=== PATIENT | female | born 1985 | race Caucasian/White ===

== ENCOUNTER 2020-08-03 22:30 | Inpatient (IN) | payer BC ==
[2020-08-03] MEDS ORDERED: Sodium Chloride 0.9% 10 ML Syringe FLUSH PRN (22:48)
--- NOTE | 2020-08-03 22:59 | PCM.LDHP ---
L&D History of Present Illness - General Date of Service: 08/03/20 (labor) Admit Problem/Dx: Patient Status Order with Admit Dx/Problem 08/03/20 22:48 Patient Status [ADT] Routine Admission Diagnosis/Problem Admission Diagnosis/Problem Labor established Source of Information: Patient History Limitations: Reports: No Limitations - History of Present Illness Introduction:: Rishabh is a 35 year old who is 39 6/7 weeks gestation. I saw her clinic this morning and she was /-1. She contracted all day at home. This evening contractions got stronger and she felt she needed to come in about 2200. Healthy Labs GBS neg ABO A pos HIV neg Rubella immune although she has had several booster shots over the years. Timing/Duration: Reports: minutes: (5), constant/continuous Location, : Reports: Abdomen Quality: Reports: Pressure Severity: Moderate Improves with: Reports: None Worsens with: Reports: None - Related Data Allergies/Adverse Reactions: Allergies Allergy/AdvReac Type Severity Reaction Status Date / Time No Known Allergies Allergy Verified 10/29/13 06:30 Home Medications: Home Meds Vits #93/Iron Fum/FA [ Formula Tablet] 1 each PO DAILY 09/13/18 [History] Past Medical History - Past Health History Medical/Surgical History: Denies Medical/Surgical History Respiratory History: Reports: None SAMPLE COORDINATOR History: Reports: : 10 Para: 9 LMP (Approximate): (SHARON 08/04/20) - Infectious Disease History Infectious Disease History: Reports: Chicken Pox - Past Surgical History Cardiovascular Surgical History: Reports: None Respiratory Surgical History: Reports: None GI Surgical History: Reports: None Social & Family History - Family History Family Medical History: Noncontributory - Caffeine Use Caffeine Use: Reports: Coffee Other Caffeine Use: minimally H&P Review of Systems - Review of Systems: Review Of Systems: See Below General: Reports: No Symptoms HEENT: Reports: No Symptoms Pulmonary: Reports: No Symptoms Cardiovascular: Reports: No Symptoms Gastrointestinal: Reports: No Symptoms Genitourinary: Reports: No Symptoms Musculoskeletal: Reports: No Symptoms Skin: Reports: No Symptoms Psychiatric: Reports: No Symptoms Neurological: Reports: No Symptoms Hematologic/Lymphatic: Reports: No Symptoms Immunologic: Reports: No Symptoms L&D Exam - Exam Exam: See Below - OB Specific Contraction Intensity: Moderate Movement: Active Heart Tones: Present Heart Tones per Min: 145 Heart Rate (FHR) Variability: Moderate (6-25 bmp) Presentation: Vertex Estimated Weight: 8 pounds - Problem List (1) Labor established SNOMED Code(s): 96170141 ICD Code: PRZ0152 - Status: Acute Current Visit: Yes (2) SNOMED Code(s): 20593304 ICD Code: Z34.90 - ENCNTR FOR SUPRVSN OF NORMAL , UNSP, UNSP TRIMESTER Status: Acute Current Visit: Yes Qualifiers: Weeks of gestation: 39 weeks Qualified Code(s): Z3A.39 - 39 weeks gestation of Problem List Initiated/Reviewed/Updated: Yes Orders Last 24hrs: Active Orders 24 hr Category Date Time Status Patient Status [ADT] Routine ADT 08/03/20 22:48 Ordered Antiembolic Devices [RC] .Routine Care 08/03/20 22:51 Ordered Communication Order [RC] ASDIRECTED Care 08/03/20 22:48 Ordered Communication Order [RC] Per Unit Routine Care 08/03/20 22:54 Ordered Communication Order [RC] Per Unit Routine Care 08/03/20 22:54 Ordered Communication Order [RC] Per Unit Routine Care 08/03/20 22:54 Ordered Heart Tones [RC] PER UNIT ROUTINE Care 08/03/20 22:48 Ordered Non Stress Test [RC] Click to Edit Care 08/03/20 22:48 Ordered Nitrous Oxide Delivery [RC] ASDIRECTED Care 08/03/20 22:54 Ordered Notify Provider Vital Signs [RC] PRN Care 08/03/20 22:48 Ordered Notify Provider [RC] PRN Care 08/03/20 22:48 Ordered Oxygen Therapy [RC] ASDIRECTED Care 08/03/20 22:54 Ordered Pulse Oximetry [RC] ASDIRECTED Care 08/03/20 22:54 Ordered Up ad Madhuri [RC] ASDIRECTED Care 08/03/20 22:48 Ordered VTE/DVT Education [RC] Click to Edit Care 08/03/20 22:51 Ordered Verify Patient Consent Obtain [RC] ASDIRECTED Care 08/03/20 22:54 Ordered Vital Signs [RC] PER UNIT ROUTINE Care 08/03/20 22:48 Ordered Vital Signs [RC] PER UNIT ROUTINE Care 08/03/20 22:54 Ordered Regular Diet [DIET] Diet 08/04/20 Breakfast Ordered CBC WITH AUTO DIFF [HEME] Routine Lab 08/03/20 22:37 Ordered CORONAVIRUS COVID-19 RAPID [MOLEC] Stat Lab 08/03/20 22:43 Received DRUG SCREEN, URINE [URCHEM] Routine Lab 08/03/20 22:37 Ordered UA W/MICROSCOPIC [URIN] Routine Lab 08/03/20 22:36 Ordered Oxytocin/Normal Saline [Pitocin in NS 20 Units/1,000 ML Med 08/03/20 22:53 Ordered ] 20 unit in 1,000 ml IV ONETIME Sodium Chloride 0.9% [Saline Flush] Med 08/03/20 22:48 Ordered 10 ml FLUSH ASDIRECTED PRN DVT/VTE Prophylaxis Reflex [OM.PC] Routine Oth 08/03/20 22:48 Ordered Saline Lock Insert [OM.PC] Routine Oth 08/03/20 22:48 Ordered Resuscitation Status Routine Resus Stat 08/03/20 22:48 Ordered Medication Orders Oxytocin/Sodium Chloride (Pitocin In Ns 20 Units/1,000 Ml) 20 unit in 1,000 mls @ 999 mls/hr IV ONETIME ONE; Protocol Stop: 08/03/20 23:53 Sodium Chloride (Saline Flush) 10 ml FLUSH ASDIRECTED PRN PRN Reason: Keep Vein Open Assessment/Plan Comment:: 08/03/20 35 year old G10, P9 39 6/7 weeks, labor CE 4/5-90-0 AROM clear fluid Covid pending, if negative she can have Nitrous Plan anticipate a vaginal delivery nitrous for pain management
[2020-08-04] MEDS ORDERED: Benzocaine 20% Top Spray 56 GM Bottle TOP ONE (00:58)
[2020-08-04] MEDS ORDERED: Lanolin 100% Cream 40 GM Tube TOP ONE (00:58)
[2020-08-04] MEDS ORDERED: Hydrocortisone 2.5% Crm 30 GM Tube TOP PRN (00:58)
[2020-08-04] MEDS ORDERED: Witch Hazel Medicated Pads 100/Jar TOP ONE (00:58)
[2020-08-04] MEDS ORDERED: Acetaminophen 325 MG Tab, 50 Tab Bulk Bottle PO PRN (01:00)
[2020-08-04] MEDS ORDERED: Ibuprofen 200 MG Tab, 24 Tab Bulk Bottle PO PRN (01:00)
--- NOTE | 2020-08-04 01:09 | PCM.DEL ---
L & D Note - General Info Date of Service: 08/04/20 (Childbirth) Mother's Due Date: 08/04/20 - Delivery Note Labor: Spontaneous Delivery Outcome: Livebirth Infant Delivery Method: Spontaneous Vaginal Delivery-Single Delivery Mode: Spontaneous Presentation: Vertex Nuchal Cord: Present, Reduced Anesthesia Type: Nitrous Oxide Episiotomy Type: None Laceration: None Placenta: Intact, Spontaneous Cord: 3 Vessels Estimated Blood Loss: 50 Resuscitation Needed: No [place]: Stimulated, Warmed, [place] Used Provider: Saray Giron Score 1 min: 9 Score 5 min: 9 Second Stage Interventions: Reports: Second Nurse Reviewed Heart Tones, Pushing, Feet in Foot Rests Delivery Comments (Free Text/Narrative):: 08/04/20 this 35 year old G10 now p10 who is 40 weeks gestation delivered a viable male infant over an intact perineum at [address] [facility]. The had a nuchal cord which was reduced after delivery of the head. He was placed on mother's chest and cried spontaneously. Apgars of 9&9. Three vessel cord. Active management of the third stage and skin to skin were done. The placenta was expressed spontaneously intact and had a marginal cord insertion. No laceration of the perineum, vagina, cervix or rectum were found Bleeding light nad EBL 50cc Mother and baby to post in good condition. weight 7-8 First stage [id number] Second stage 8913-9546 Third stage 0789-2601 Beautiful delivery - General Info Date of Service: 08/04/20 Functional Status: Reports: Pain Controlled - Review of Systems General: Reports: No Symptoms HEENT: Reports: No Symptoms Pulmonary: Reports: No Symptoms Cardiovascular: Reports: No Symptoms Gastrointestinal: Reports: No Symptoms Genitourinary: Reports: No Symptoms Musculoskeletal: Reports: No Symptoms Skin: Reports: No Symptoms Neurological: Reports: No Symptoms Psychiatric: Reports: No Symptoms - Patient Data Vitals - Most Recent: Last Vital Signs Temp Pulse 96 08/03/20 22:41 Resp 18 08/03/20 22:41 BP 140/82 08/03/20 22:41 Pulse Ox 98 08/03/20 22:41 Weight - Most Recent: 220 lb Lab Results Last 24 Hours: Laboratory Results - last 24 hr 08/03/20 08/03/20 08/03/20 Range/Units 22:36 22:37 22:37 WBC 11.0 (4.5-11.0) K/uL RBC 4.16 (3.30-5.50) M/uL Hgb 12.3 (12.0-15.0) g/dL Hct 37.6 (36.0-48.0) % MCV 90 (80-98) fL MCH 30 (27-31) pg MCHC 33 (32-36) % Plt Count 187 (150-400) K/uL Neut % (Auto) 73 H (36-66) % Lymph % (Auto) 21 L (24-44) % [place] % (Auto) 6 (2-6) % Eos % (Auto) 0 L (2-4) % Baso % (Auto) 0 (0-1) % Urine Color Yellow (YELLOW) Urine Appearance Clear (CLEAR) Urine pH 7.5 (5.0-8.0) Ur Specific [place] 1.020 (1.008-1.030) Urine Protein Negative (NEGATIVE) mg/dL Urine Glucose (UA) Negative (NEGATIVE) mg/dL Urine Ketones Negative (NEGATIVE) mg/dL Urine Occult Blood Negative (NEGATIVE) Urine Nitrite Negative (NEGATIVE) Urine Bilirubin Negative (NEGATIVE) Urine Urobilinogen 0.2 (0.2-1.0) EU/dL Ur Leukocyte Esterase Negative (NEGATIVE) Urine RBC Not seen (0-5) Urine WBC Not seen (0-5) Ur Epithelial Cells Not seen Amorphous Sediment Not seen Urine Bacteria Not seen Urine Mucus Not seen Urine Opiates Screen Negative (NEGATIVE) Ur Oxycodone Screen Negative (NEGATIVE) Urine Methadone Screen Negative (NEGATIVE) Ur Propoxyphene Screen Negative (NEGATIVE) Ur Barbiturates Screen Negative (NEGATIVE) Ur Tricyclics Screen Negative (NEGATIVE) Ur Phencyclidine Scrn Negative (NEGATIVE) Ur Amphetamine Screen Negative (NEGATIVE) U Methamphetamines Scrn Negative (NEGATIVE) Urine MDMA Screen Negative (NEGATIVE) U Benzodiazepines Scrn Negative (NEGATIVE) U Cocaine Metab Screen Negative (NEGATIVE) U Marijuana (THC) Screen Negative (NEGATIVE) SARS CoV-2 RNA Rapid VANDANA 08/03/20 Range/Units 22:43 WBC (4.5-11.0) K/uL RBC (3.30-5.50) M/uL Hgb (12.0-15.0) g/dL Hct (36.0-48.0) % MCV (80-98) fL MCH (27-31) pg MCHC (32-36) % Plt Count (150-400) K/uL Neut % (Auto) (36-66) % Lymph % (Auto) (24-44) % [place] % (Auto) (2-6) % Eos % (Auto) (2-4) % Baso % (Auto) (0-1) % Urine Color (YELLOW) Urine Appearance (CLEAR) Urine pH (5.0-8.0) Ur Specific [place] (1.008-1.030) Urine Protein (NEGATIVE) mg/dL Urine Glucose (UA) (NEGATIVE) mg/dL Urine Ketones (NEGATIVE) mg/dL Urine Occult Blood (NEGATIVE) Urine Nitrite (NEGATIVE) Urine Bilirubin (NEGATIVE) Urine Urobilinogen (0.2-1.0) EU/dL Ur Leukocyte Esterase (NEGATIVE) Urine RBC (0-5) Urine WBC (0-5) Ur Epithelial Cells Amorphous Sediment Urine Bacteria Urine Mucus Urine Opiates Screen (NEGATIVE) Ur Oxycodone Screen (NEGATIVE) Urine Methadone Screen (NEGATIVE) Ur Propoxyphene Screen (NEGATIVE) Ur Barbiturates Screen (NEGATIVE) Ur Tricyclics Screen (NEGATIVE) Ur Phencyclidine Scrn (NEGATIVE) Ur Amphetamine Screen (NEGATIVE) U Methamphetamines Scrn (NEGATIVE) Urine MDMA Screen (NEGATIVE) U Benzodiazepines Scrn (NEGATIVE) U Cocaine Metab Screen (NEGATIVE) U Marijuana (THC) Screen (NEGATIVE) SARS CoV-2 RNA Rapid VANDANA Negative Med Orders - Current: Current Medications Acetaminophen (Tylenol Bulk Bottle) 0 mg PO Q4H PRN PRN Reason: Pain Benzocaine (Hfww-A-[id number] 20% [place]) 0 gm TOP Q4H ONE Stop: 08/04/20 00:59 Emollient Ointment (Lansinoh Hpa) 1 gm TOP ASDIRECTED ONE Stop: 08/04/20 00:59 Hydrocortisone (Proctozone-Hc 2.5% Crm) 1 gm TOP ASDIRECTED PRN PRN Reason: Itching Ibuprofen (Motrin Bulk Bottle) 600 mg PO Q6H PRN PRN Reason: Pain Sodium Chloride (Saline Flush) 10 ml FLUSH ASDIRECTED PRN PRN Reason: Keep Vein Open Witch Zuly (Tucks) 1 pad TOP ASDIRECTED ONE Stop: 08/04/20 00:59 Discontinued Medications Oxytocin/Sodium Chloride (Pitocin In Ns 20 Units/1,000 Ml) 20 unit in 1,000 mls @ 999 mls/hr IV ONETIME ONE; Protocol Stop: 08/03/20 23:53 Last Admin: 08/04/20 00:15 Dose: 999 mls/hr, 999 mls/hr Documented by: - Exam General: Alert, Oriented HEENT: Pupils Equal, Pupils Reactive Neck: Supple Lungs: Clear to Auscultation, Normal Respiratory Effort Cardiovascular: Regular Rate, Regular Rhythm GI/Abdominal Exam: Normal Bowel Sounds, Soft (Female) Exam: Normal External Exam, Cervical Dilatation, Enlarged Uterus, Vaginal Bleeding Back Exam: Normal Inspection, Full Range of Motion Extremities: Normal Inspection, No Pedal Edema, Normal Capillary Refill Skin: Warm, Dry, Intact Neurological: No New Focal Deficit Psy/Mental Status: Alert, Normal Affect, Normal Mood - Problem List & Annotations (1) Labor established SNOMED Code(s): 64752379 Code(s): TVX8724 - Status: Acute Current Visit: Yes (2) SNOMED Code(s): 17955950 Code(s): Z34.90 - ENCNTR FOR SUPRVSN OF NORMAL , UNSP, UNSP TRIMESTER Status: Acute Current Visit: Yes Qualifiers: Weeks of gestation: 39 weeks Qualified Code(s): Z3A.39 - 39 weeks gestation of (3) () SNOMED Code(s): 400934476 Code(s): Z78.9 - OTHER SPECIFIED HEALTH STATUS Status: Acute Current Visit: Yes (4) Normal (single liveborn) SNOMED Code(s): 378414600, 619922146, 703145453 Code(s): Z38.2 - SINGLE LIVEBORN , UNSPECIFIED TO PLACE OF Status: Acute Current Visit: Yes (5) Vaginal delivery SNOMED Code(s): 201557893 Code(s): O80 - ENCOUNTER FOR FULL-TERM UNCOMPLICATED DELIVERY Status: Acute Current Visit: Yes - Problem List Review Problem List Initiated/Reviewed/Updated: Yes - My Orders Last 24 Hours: My Active Orders 08/03/20 22:48 Communication Order [RC] ASDIRECTED Notify Provider Vital Signs [RC] PRN Notify Provider [RC] PRN Up ad Madhuri [RC] ASDIRECTED Vital Signs [RC] PER UNIT ROUTINE Sodium Chloride 0.9% [Saline Flush] 10 ml FLUSH ASDIRECTED PRN DVT/VTE Prophylaxis Reflex [OM.PC] Routine Saline Lock Insert [OM.PC] Routine 08/03/20 22:51 Antiembolic Devices [RC] .Routine VTE/DVT Education [RC] Click to Edit 08/03/20 22:54 Communication Order [RC] Per Unit Routine Communication Order [RC] Per Unit Routine Communication Order [RC] Per Unit Routine Nitrous Oxide Delivery [RC] ASDIRECTED Pulse Oximetry [RC] ASDIRECTED Verify Patient Consent Obtain [RC] ASDIRECTED Vital Signs [RC] PER UNIT ROUTINE 08/04/20 00:58 Patient Status [ADT] Routine Vital Signs [RC] PFP Benzocaine [Kscf-M-Qsdcdmp 20% [place]] See Dose Instructions TOP Q4H ONE Hydrocortisone [Proctozone-HC 2.5% Crm] 1 gm TOP ASDIRECTED PRN Lanolin [Lansinoh HPA] 1 gm TOP ASDIRECTED ONE witch Zuly [Tucks] 1 pad TOP ASDIRECTED ONE Resuscitation Status Routine 08/04/20 00:59 Peripheral IV Discontinue [OM.PC] Routine Sitz Bath [OM.PC] Per Unit Routine 08/04/20 01:00 Acetaminophen [Tylenol Bulk Bottle] See Dose Instructions PO Q4H PRN Ibuprofen [Motrin Bulk Bottle] 600 mg PO Q6H PRN 08/04/20 05:11 CBC WITH AUTO DIFF [HEME] AM 08/04/20 Breakfast Regular Diet [DIET] - Assessment Assessment:: 08/04/20 35 year old G10 now P10 without complications Male infant - Plan Plan:: 08/03/20 35 year old G10, P9 39 6/7 weeks, labor CE 01/03-90-0 AROM clear fluid Covid pending, if negative she can have Nitrous Plan anticipate a vaginal delivery nitrous for pain management 08/04/20 routine cares 24-48 hour stay
[2020-08-04] MEDS ORDERED: Benzocaine 20% Top Spray 56 GM Bottle TOP PRN (07:48)
[2020-08-04] MEDS ORDERED: Witch Hazel Medicated Pads 100/Jar TOP PRN (07:49)
[2020-08-04] MEDS ORDERED: Lanolin 100% Cream 40 GM Tube TOP PRN (07:49)
--- NOTE | 2020-08-04 11:07 | PCM.PNPP ---
- General Info Date of Service: 08/04/20 Functional Status: Reports: Pain Controlled - Review of Systems General: Reports: No Symptoms HEENT: Reports: No Symptoms Pulmonary: Reports: No Symptoms Cardiovascular: Reports: No Symptoms Gastrointestinal: Reports: No Symptoms Genitourinary: Reports: No Symptoms Musculoskeletal: Reports: No Symptoms Skin: Reports: No Symptoms Neurological: Reports: No Symptoms Psychiatric: Reports: No Symptoms - General Info Date of Service: 08/04/20 - Patient Data Vital Signs - Most Recent: Last Vital Signs Temp 36.2 C 08/04/20 11:01 Pulse 87 08/04/20 11:01 Resp 18 08/04/20 11:01 BP 120/63 08/04/20 11:01 Pulse Ox 98 08/04/20 11:01 Weight - Most Recent: 99.79 kg Lab Results - Last 24 Hours: Laboratory Results - last 24 hr 08/03/20 08/03/20 08/03/20 Range/Units 22:36 22:37 22:37 WBC 11.0 (4.5-11.0) K/uL RBC 4.16 (3.30-5.50) M/uL Hgb 12.3 (12.0-15.0) g/dL Hct 37.6 (36.0-48.0) % MCV 90 (80-98) fL MCH 30 (27-31) pg MCHC 33 (32-36) % Plt Count 187 (150-400) K/uL Neut % (Auto) 73 H (36-66) % Lymph % (Auto) 21 L (24-44) % [place] % (Auto) 6 (2-6) % Eos % (Auto) 0 L (2-4) % Baso % (Auto) 0 (0-1) % Urine Color Yellow (YELLOW) Urine Appearance Clear (CLEAR) Urine pH 7.5 (5.0-8.0) Ur Specific [place] 1.020 (1.008-1.030) Urine Protein Negative (NEGATIVE) mg/dL Urine Glucose (UA) Negative (NEGATIVE) mg/dL Urine Ketones Negative (NEGATIVE) mg/dL Urine Occult Blood Negative (NEGATIVE) Urine Nitrite Negative (NEGATIVE) Urine Bilirubin Negative (NEGATIVE) Urine Urobilinogen 0.2 (0.2-1.0) EU/dL Ur Leukocyte Esterase Negative (NEGATIVE) Urine RBC Not seen (0-5) Urine WBC Not seen (0-5) Ur Epithelial Cells Not seen Amorphous Sediment Not seen Urine Bacteria Not seen Urine Mucus Not seen Urine Opiates Screen Negative (NEGATIVE) Ur Oxycodone Screen Negative (NEGATIVE) Urine Methadone Screen Negative (NEGATIVE) Ur Propoxyphene Screen Negative (NEGATIVE) Ur Barbiturates Screen Negative (NEGATIVE) Ur Tricyclics Screen Negative (NEGATIVE) Ur Phencyclidine Scrn Negative (NEGATIVE) Ur Amphetamine Screen Negative (NEGATIVE) U Methamphetamines Scrn Negative (NEGATIVE) Urine MDMA Screen Negative (NEGATIVE) U Benzodiazepines Scrn Negative (NEGATIVE) U Cocaine Metab Screen Negative (NEGATIVE) U Marijuana (THC) Screen Negative (NEGATIVE) SARS CoV-2 RNA Rapid VANDANA 08/03/20 08/04/20 Range/Units 22:43 06:06 WBC 12.9 H (4.5-11.0) K/uL RBC 3.81 (3.30-5.50) M/uL Hgb 11.3 L (12.0-15.0) g/dL Hct 34.4 L (36.0-48.0) % MCV 90 (80-98) fL MCH 30 (27-31) pg MCHC 33 (32-36) % Plt Count 177 (150-400) K/uL Neut % (Auto) 81 H (36-66) % Lymph % (Auto) 13 L (24-44) % [place] % (Auto) 5 (2-6) % Eos % (Auto) 0 L (2-4) % Baso % (Auto) 0 (0-1) % Urine Color (YELLOW) Urine Appearance (CLEAR) Urine pH (5.0-8.0) Ur Specific [place] (1.008-1.030) Urine Protein (NEGATIVE) mg/dL Urine Glucose (UA) (NEGATIVE) mg/dL Urine Ketones (NEGATIVE) mg/dL Urine Occult Blood (NEGATIVE) Urine Nitrite (NEGATIVE) Urine Bilirubin (NEGATIVE) Urine Urobilinogen (0.2-1.0) EU/dL Ur Leukocyte Esterase (NEGATIVE) Urine RBC (0-5) Urine WBC (0-5) Ur Epithelial Cells Amorphous Sediment Urine Bacteria Urine Mucus Urine Opiates Screen (NEGATIVE) Ur Oxycodone Screen (NEGATIVE) Urine Methadone Screen (NEGATIVE) Ur Propoxyphene Screen (NEGATIVE) Ur Barbiturates Screen (NEGATIVE) Ur Tricyclics Screen (NEGATIVE) Ur Phencyclidine Scrn (NEGATIVE) Ur Amphetamine Screen (NEGATIVE) U Methamphetamines Scrn (NEGATIVE) Urine MDMA Screen (NEGATIVE) U Benzodiazepines Scrn (NEGATIVE) U Cocaine Metab Screen (NEGATIVE) U Marijuana (THC) Screen (NEGATIVE) SARS CoV-2 RNA Rapid VANDANA Negative Med Orders - Current: Current Medications Acetaminophen (Tylenol Bulk Bottle) 0 mg PO Q4H PRN PRN Reason: Pain Last Admin: 08/04/20 01:42 Dose: 325 mg Documented by: Benzocaine (Zgaa-J-Vgmgail 20% [place]) 0 gm TOP Q4H PRN PRN Reason: perineal pain Emollient Ointment (Lansinoh Hpa) 1 gm TOP ASDIRECTED PRN PRN Reason: SORE NIPPLES Hydrocortisone (Proctozone-Hc 2.5% Crm) 1 gm TOP ASDIRECTED PRN PRN Reason: Itching Ibuprofen (Motrin Bulk Bottle) 600 mg PO Q6H PRN PRN Reason: Pain Last Admin: 08/04/20 01:40 Dose: 600 mg Documented by: Sodium Chloride (Saline Flush) 10 ml FLUSH ASDIRECTED PRN PRN Reason: Keep Vein Open Alo Alvarez) 1 pad TOP ASDIRECTED PRN PRN Reason: TO perineum Discontinued Medications Benzocaine (Hbbq-F-Ikjsqrp 20% [place]) 0 gm TOP Q4H ONE Stop: 08/04/20 00:59 Last Admin: 08/04/20 01:41 Dose: Not Given Documented by: Emollient Ointment (Lansinoh Hpa) 1 gm TOP ASDIRECTED ONE Stop: 08/04/20 00:59 Last Admin: 08/04/20 01:41 Dose: Not Given Documented by: Oxytocin/Sodium Chloride (Pitocin In Ns 20 Units/1,000 Ml) 20 unit in 1,000 mls @ 999 mls/hr IV ONETIME ONE; Protocol Stop: 08/03/20 23:53 Last Admin: 08/04/20 00:15 Dose: 999 mls/hr, 999 mls/hr Documented by: Alo Alvarez) 1 pad TOP ASDIRECTED ONE Stop: 08/04/20 00:59 Last Admin: 08/04/20 01:40 Dose: 1 pad Documented by: - Infant Interaction Infant Disposition, : in Room with Family Infant Interaction: Holding Infant Feeding: Breastfed ; Nursed Well Support Person: - Recovery Exam Fundal Tone: Firm Fundal Level: At Umbilicus Fundal Placement: Midline Lochia Amount: Moderate Lochia Color: Rubra/Red Perineum Description: Intact, Minimal Bruising/Swelling Episiotomy/Laceration: None Bladder Status: Voiding - Exam General: Alert, Oriented HEENT: Pupils Equal, Pupils Reactive, Mucous Membr. Moist/[place] Neck: Supple Lungs: Clear to Auscultation, Normal Respiratory Effort Cardiovascular: Regular Rate, Regular Rhythm GI/Abdominal Exam: Normal Bowel Sounds, Soft, Non-Tender, No Organomegaly, No Mass, Pelvis Stable Extremities: Normal Inspection, Normal Range of Motion, Non-Tender, No Pedal Edema, Normal Capillary Refill Skin: Warm, Dry, Intact Neurological: No New Focal Deficit Psy/Mental Status: Alert, Normal Affect, Normal Mood - Problem List & Annotations (1) (infant) SNOMED Code(s): 165953022 Code(s): Z78.9 - OTHER SPECIFIED HEALTH STATUS Status: Acute Current Visit: Yes (2) Vaginal delivery SNOMED Code(s): 924478090 Code(s): O80 - ENCOUNTER FOR FULL-TERM UNCOMPLICATED DELIVERY Status: Acute Current Visit: Yes - Problem List Review Problem List Initiated/Reviewed/Updated: Yes - Assessment Assessment:: 08/04/20 35 year old G10 now P10 without complications Male 08/04/20 without complications Hbg 11.3 FF and bleeding light Feeling well - Plan Plan:: 08/03/20 35 year old G10, P9 39 6/7 weeks, labor CE 01/03-90-0 AROM clear fluid Covid pending, if negative she can have Nitrous Plan anticipate a vaginal delivery nitrous for pain management 08/04/20 routine cares 24-48 hour stay 08/04/20 Routine cares Anticipate discharge tomorrow am support as needed
--- NOTE | 2020-08-05 09:27 | PCM.PNPP ---
- General Info Date of Service: 08/05/20 Functional Status: Reports: Pain Controlled - Review of Systems General: Reports: No Symptoms HEENT: Reports: No Symptoms Pulmonary: Reports: No Symptoms Cardiovascular: Reports: No Symptoms Gastrointestinal: Reports: No Symptoms Genitourinary: Reports: No Symptoms Musculoskeletal: Reports: No Symptoms Skin: Reports: No Symptoms Neurological: Reports: No Symptoms Psychiatric: Reports: No Symptoms - General Info Date of Service: 08/05/20 - Patient Data Vital Signs - Most Recent: Last Vital Signs Temp 35.8 C L 08/05/20 04:00 Pulse 84 08/05/20 04:00 Resp 18 08/05/20 04:00 BP 124/80 08/05/20 04:00 Pulse Ox 99 08/05/20 04:00 Weight - Most Recent: 99.79 kg I&O - Last 24 Hours: Intake & Output 08/04/20 08/05/20 08/05/20 22:59 06:59 14:59 Intake Total 480 1000 Balance 480 1000 Med Orders - Current: Current Medications Acetaminophen (Tylenol Bulk Bottle) 0 mg PO Q4H PRN PRN Reason: Pain Last Admin: 08/04/20 01:42 Dose: 325 mg Documented by: Benzocaine (Hcyr-U-Cdwwypm 20% [place]) 0 gm TOP Q4H PRN PRN Reason: perineal pain Emollient Ointment (Lansinoh Hpa) 1 gm TOP ASDIRECTED PRN PRN Reason: SORE NIPPLES Hydrocortisone (Proctozone-Hc 2.5% Crm) 1 gm TOP ASDIRECTED PRN PRN Reason: Itching Ibuprofen (Motrin Bulk Bottle) 600 mg PO Q6H PRN PRN Reason: Pain Last Admin: 08/04/20 01:40 Dose: 600 mg Documented by: Sodium Chloride (Saline Flush) 10 ml FLUSH ASDIRECTED PRN PRN Reason: Keep Vein Open Witch Zuly (Tucks) 1 pad TOP ASDIRECTED PRN PRN Reason: TO perineum Discontinued Medications Benzocaine (Ptyp-Y-Tppiqzh 20% [place]) 0 gm TOP Q4H ONE Stop: 08/04/20 00:59 Last Admin: 08/04/20 01:41 Dose: Not Given Documented by: Emollient Ointment (Lansinoh Hpa) 1 gm TOP ASDIRECTED ONE Stop: 08/04/20 00:59 Last Admin: 08/04/20 01:41 Dose: Not Given Documented by: Oxytocin/Sodium Chloride (Pitocin In Ns 20 Units/1,000 Ml) 20 unit in 1,000 mls @ 999 mls/hr IV ONETIME ONE; Protocol Stop: 08/03/20 23:53 Last Admin: 08/04/20 00:15 Dose: 999 mls/hr, 999 mls/hr Documented by: Alo Alvarez) 1 pad TOP ASDIRECTED ONE Stop: 08/04/20 00:59 Last Admin: 08/04/20 01:40 Dose: 1 pad Documented by: - Infant Interaction Infant Disposition, : [place] in Room with Family Interaction: Holding Feeding: Breastfed Infant; Nursed Well Support Person: - Recovery Exam Fundal Tone: Firm Fundal Level: 2 Fingerbreadths Below Umbilicus Fundal Placement: Midline Lochia Amount: Moderate Lochia Color: Rubra/Red Perineum Description: Intact, Minimal Bruising/Swelling Episiotomy/Laceration: None Bladder Status: Voiding Urinary Elimination: Voided - Exam General: Alert, Oriented HEENT: Pupils Equal Neck: Supple Lungs: Clear to Auscultation, Normal Respiratory Effort Cardiovascular: Regular Rate, Regular Rhythm GI/Abdominal Exam: Normal Bowel Sounds, Soft, Non-Tender, No Organomegaly, No Distention, No Mass, Pelvis Stable Extremities: Normal Inspection, Normal Range of Motion, Non-Tender, No Pedal Edema, Normal Capillary Refill Skin: Warm, Dry, Intact Neurological: No New Focal Deficit Psy/Mental Status: Alert, Normal Affect, Normal Mood - Problem List & Annotations (1) () SNOMED Code(s): 141354126 Code(s): Z78.9 - OTHER SPECIFIED HEALTH STATUS Status: Acute Current Visit: Yes (2) Vaginal delivery SNOMED Code(s): 518390427 Code(s): O80 - ENCOUNTER FOR FULL-TERM UNCOMPLICATED DELIVERY Status: Acute Current Visit: Yes - Problem List Review Problem List Initiated/Reviewed/Updated: Yes - Assessment Assessment:: 08/04/20 35 year old G10 now P10 without complications Male 08/04/20 without complications Hbg 11.3 FF and bleeding light Feeling well 08/05/20 without complications FF and bleeding light Pain controlled going well Ready for discharge - Plan Plan:: 08/03/20 35 year old G10, P9 39 6/7 weeks, labor CE 01/03-90-0 AROM clear fluid Covid pending, if negative she can have Nitrous Plan anticipate a vaginal delivery nitrous for pain management 08/04/20 routine cares 24-48 hour stay 08/04/20 Routine cares Anticipate discharge tomorrow am support as needed 08/05/20 Routine cares Discharge home today 6 week PP check in clinic
[2020-08-05 09:28] VITALS: BP 144/73; PULSE 81
== END 2020-08-05 11:30 | disposition home or self-care (01) | DRG 560 ==
LOC: JP.OB 22:30 → OBSVTOIN 08-04 00:37 → JP.MS 08-04 02:00
PROVIDERS: ADMIT Nurse Practitioner Family; ATTEND Nurse Practitioner Family
PROC: 10E0XZZ Delivery of Products of Conception, External Approach (ICD-10-PCS; principal; 2020-08-04)
DX: O69.81X0 Labor and delivery complicated by cord around neck, without compression, not applicable or unspecified (principal); Z3A.39 39 weeks gestation of pregnancy; Z37.0 Single live birth; Z20.828 Contact with and (suspected) exposure to other viral communicable diseases
CPT/HCPCS: 36415; 59409; 80305-QW; 81001; 85025; A9270-GY; J2590; U0002

== ENCOUNTER 2024-03-10 06:05 | Day surgery (SDC) | payer BC ==
[2024-03-10 07:16] LABS: HEMATOCRIT 36.4 % (34.3-46.0); HEMOGLOBIN 12.2 g/dL (11.2-15.5); MEAN CORPUSCULAR HEMOGLOBIN 28.8 pg (31.6-35.5); MEAN CORPUSCULAR HGB CONC 33.5 g/dL (31.6-35.5); MEAN CORPUSCULAR VOLUME 86.1 fL (81.4-99.0); RED BLOOD CELL COUNT 4.23 M/uL (3.77-5.24); WHITE BLOOD CELL COUNT,WBC 10.5 K/uL (3.2-11.0)
[2024-03-10] MEDS ORDERED: Propofol 200 MG/20 ML SDV ONE (07:21)
[2024-03-10] MEDS ORDERED: fentaNYL 250 MCG/5 ML SDV ONE (07:21)
[2024-03-10] MEDS ORDERED: Ondansetron 4 MG/2 ML SDV ONE (07:22)
[2024-03-10] MEDS ORDERED: Dexamethasone 4 MG/ML SDV ONE (07:22)
[2024-03-10] MEDS ORDERED: Midazolam 1 MG/ML 2 ML SDV ONE (07:22)
[2024-03-10] MEDS: Nozin Nasal Sanitizer NASBOTH ONE (07:24)
[2024-03-10] MEDS: Lactated Ringers 1,000 ML IV SCH (07:24)
[2024-03-10 07:36] LABS: ALANINE AMINOTRANSFERASE,ALT 23 U/L (12-78); ALBUMIN 3.5 g/dL (3.4-5.0); ALKALINE PHOSPHATASE 68 U/L (46-116); ASPARTATE AMNIOTRANSFERASE,AST 16 U/L (15-37); BILIRUBIN TOTAL 0.4 mg/dL (0.2-1.0); BLOOD UREA NITROGEN,BUN 11 mg/dL (7-18); CALCIUM 9.1 mg/dL (8.5-10.1); CARBON DIOXIDE,CO2 27 mmol/L (21-32); CHLORIDE,CL 105 mmol/L (100-108); CREATININE 0.8 mg/dL (0.6-1.0); EST CRCL DRUG DOSING (CG) 84.11 mL/min; ESTIMATED GFR 95 mL/min (>60); GLUCOSE RANDOM 105 mg/dL (74-106); POTASSIUM,K 4.5 mmol/L (3.6-5.2); PROTEIN TOTAL,TP 7.1 g/dL (6.4-8.2); SODIUM,NA 139 mmol/L (140-148)
[2024-03-10 07:38] LABS: ANION GAP 11.5 mmol/L (5.0-14.0)
[2024-03-10] MEDS ORDERED: ceFAZolin 2 GM in Sodium Chloride 0.9% 100 ML IV ONE (07:53)
[2024-03-10] MEDS: ceFAZolin 2 GM in Premix Bag 1 BAG IV ONE (08:00)
[2024-03-10] MEDS: Bupivacaine 0.5% 30 ML SDV ONE (08:32)
[2024-03-10] MEDS ORDERED: fentaNYL 100 MCG/2 ML SDV ONE (08:59)
[2024-03-10] MEDS: Acetaminophen/HYDROcodone 325-5 MG Tab PO PRN (11:08)
[2024-03-10 12:24] VITALS: BP 137/93; PULSE 89
== END 2024-03-10 12:50 | disposition home or self-care (01) ==
LOC: JP.SDS 06:05
PROVIDERS: ATTEND Specialist
DX: S82.52XA Displaced fracture of medial malleolus of left tibia, initial encounter for closed fracture (principal); W10.8XXA Fall (on) (from) other stairs and steps, initial encounter
CPT/HCPCS: 27766; 36415; 76000; 80053; 85027; A9270; C1713; C1776; J0665; J0690; J1100; J2250; J2405; J2704; J3010; J7120; 01480-QZ